=== PATIENT | female | born 1995 ===

== ENCOUNTER 2021-02-25 13:24 | Inpatient (IN) | payer MEDICAID, OTHER ==
[2021-02-25] MEDS ORDERED: CARBOPROST TROMETHAMINE 250 MCG/1 ML INJ IM PRN (15:41)
[2021-02-25] MEDS ORDERED: LOPERAMIDE 2 MG CAP PO PRN (15:41)
[2021-02-25] MEDS ORDERED: ACETAMINOPHEN 325 MG TAB PO PRN (15:41)
[2021-02-25] MEDS ORDERED: METHYLERGONOVINE MALEATE 0.2 MG/ML VIAL IM PRN (15:41)
[2021-02-25] MEDS ORDERED: fentaNYL 100 MCG/2 ML INJ IV PRN (15:41)
[2021-02-25] MEDS ORDERED: MINERAL OIL 30 ML ORAL LIQD PO PRN (15:41)
[2021-02-25] MEDS ORDERED: OXYTOCIN 10 UNIT/1 ML INJ IM PRN (15:41)
[2021-02-25] MEDS ORDERED: TERBUTALINE 1 MG/1 ML INJ SUB-Q PRN (15:41)
[2021-02-25] MEDS ORDERED: LIDOCAINE (2%) 20 MG/1 ML VIAL 20 ML MDV INFILTRATI ONE (15:41)
[2021-02-25] MEDS ORDERED: PROMETHAZINE 25 MG TAB PO PRN (15:41)
[2021-02-25] MEDS ORDERED: miSOPROStol 200 MCG TAB PR PRN (15:41)
[2021-02-25] MEDS ORDERED: ePHEDrine SULFATE 50 MG/1 ML INJ IV PRN (15:41)
[2021-02-25] MEDS ORDERED: OXYTOCIN DRIP 30 UNITS/500 ML BAG IV SCH (16:00)
[2021-02-25 16:22] LABS: Hematocrit 37.8 % (30.3-42.9); Hemoglobin 12.7 gm/dl (10.1-14.3); Mean Corpuscular HGB Conc 34 % (30-34); Mean Corpuscular Volume 85 fl (79-97); Red Blood Count 4.47 M/mm3 (3.65-5.03)
[2021-02-25 16:26] LABS: Red Cell Distribution Width 20.2 % (13.2-15.2)
[2021-02-25] MEDS: LACTATED RINGERS 1,000 ML IV SCH (16:29)
[2021-02-25] MEDS: OXYTOCIN DRIP 30 UNITS/500 ML BAG IV SCH (16:29)
[2021-02-25 16:37] LABS: Platelet Count 125 K/mm3 (140-440)
--- NOTE | 2021-02-25 19:03 | History and Physical Report ---
History of Present Illness Date of examination: 02/25/21 Date of admission: 02/25/21 13:25 Chief complaint: leakage of fluid and contractions History of present illness: G1Po at 40.6wks by LMP c/w U/Sound. care at [facility] covered by [employer]. pt came with c/o LOF at 4am today and pt came this evening. Pt denied fever or chills. pt feeling ctx however wants to do natural labor. pt has known uterine fibroids diagnosed this and she states she has been taking iron pills. Pt admits to movement, denies vag bleed or headache. labs with B+, RPR, HIV and HepBsAg all negative. Rubella immune. records also show multiple uterine fibroids. 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) Social history: no significant social history - Obstetrical History Expected Date of Delivery: 02/19/21 Actual Gestation: 40 Week(s) 6 Day(s) : 1 Number of Living Children: 0 Medications and Allergies Allergies Allergy/AdvReac Type Severity Reaction Status Date / Time No Known Allergies Allergy Verified 02/25/21 14:06 Home Medications Medication Instructions Recorded Confirmed Last Taken Type Pnv,Calcium 72/Iron/Folic Acid 1 each PO DAILY 02/25/21 02/25/21 02/24/21 14:00 History [ Plus Tablet] Active Meds: Active Medications Acetaminophen (Acetaminophen 325 Mg Tab) 650 mg PO Q4H PRN PRN Reason: Pain, Mild (1-3) Carboprost Tromethamine (Carboprost Tromethamine 250 Mcg/1 Ml Inj) 250 mcg IM ONCE PRN PRN Reason: Uterine Bleeding Ephedrine Sulfate (Ephedrine Sulfate 50 Mg/1 Ml Inj) 10 mg IV Q2M PRN PRN Reason: Hypotension Fentanyl (Fentanyl 100 Mcg/2 Ml Inj) 100 mcg IV Q2H PRN PRN Reason: Pain,Severe (7-10) LABOR PAIN Oxytocin/Sodium Chloride (Pitocin/Ns 30 Unit/500ml) 30 units in 500 mls @ 2 mls/hr IV TITR LARRY; Protocol Last Titration: 02/25/21 18:15 Dose: 8 ml/hr, 8 mls/hr Documented by: Lactated Ringer's (Lactated Ringers) 1,000 mls @ 125 mls/hr IV DIRECT LARRY Last Admin: 02/25/21 16:29 Dose: 125 mls/hr Documented by: Oxytocin/Sodium Chloride (Pitocin/Ns 30 Unit/500ml) 30 units in 500 mls @ 40 mls/hr IV TITR LARRY; Protocol Loperamide HCl (Loperamide 2 Mg Cap) 2 mg PO ONCE PRN PRN Reason: give with Hemabate Methylergonovine Maleate (Methylergonovine Maleate 0.2 Mg/Ml Vial) 0.2 mg IM ONCE PRN PRN Reason: Uterine Bleeding Mineral Oil (Mineral Oil 30 Ml Oral Liqd) 30 ml PO QHS PRN PRN Reason: Constipation Misoprostol (Misoprostol 200 Mcg Tab) 800 mcg SC ONCE PRN PRN Reason: Uterine Bleeding Nalbuphine HCl (Nalbuphine 10 Mg/1 Ml Inj) 10 mg IV Q2H PRN PRN Reason: Pain, Moderate (4-6) Oxytocin (Oxytocin 10 Unit/1 Ml Inj) 10 unit IM ONCE PRN PRN Reason: Uterine Bleeding Promethazine HCl (Promethazine 25 Mg Tab) 25 mg PO Q6H PRN PRN Reason: Nausea And Vomiting Terbutaline Sulfate (Terbutaline 1 Mg/1 Ml Inj) 0.25 mg SUB-Q ONCE PRN PRN Reason: Hyperstimulation/Hypertonicity Review of Systems All systems: negative (leakage of fluid and contractions) - Vital Signs Vital signs: Vital Signs Pulse Pulse Ox 61 99 02/25/21 13:47 02/25/21 13:47 Temp Pulse Resp BP Pulse Ox 98.4 F 59 L 20 121/74 99 02/25/21 18:31 02/25/21 18:52 02/25/21 18:31 02/25/21 15:35 02/25/21 18:52 - Physical Exam Breasts: Positive: deferred Lungs: Positive: Clear to auscultation Abdomen: Positive: normal appearance, soft Genitourinary (Female): Positive: normal external genitalia Vagina: Positive: normal moisture Uterus: Positive: enlarged (non-tender, gravid) Extremities: Positive: normal - Obstetrical FHR: category 1 Uterine Contraction Monitor Mode: External Cervical Dilatation: 1.5 (prev closed on admit, mec and blood tinged fluid) Cervical Effacement Percentage: 70 station: -2 Uterine Contraction Pattern: Irregular (IV pitocin now at 6mu/min) Results Result Diagrams: 02/25/21 15:05 Abnormal lab results 02/25/21 02/25/21 Range/Units 12:45 15:05 RDW 20.2 H (13.2-15.2) % Plt Count 125 L (140-440) K/mm3 Membranes Rupture Positive A (Negative) All other labs normal. Assessment and Plan Term IUP, post dates with PROM, meconium stained and now blood tinged fluid with multiple uterine fibroids 1. admit to labor and delivery and Augment labor with IV pitocin 2. Give amp for prolong rupture of membranes with single temp of 100.0 on admission, now afebrile 3. Discussed epidural for better pain relief 4. Discussed alternate route of delivery with section if non-reassuring FHR or arrest of labor all questions encouraged and answered
[2021-02-25] MEDS ORDERED: AMPICILLIN/NS 2 GM/100 ML 2 GM/100 ML BAG IV ONE (19:30)
[2021-02-25] MEDS: NalbUPHINE 10 MG/1 ML INJ IV PRN (22:49)
[2021-02-26] MEDS: AMPICILLIN/NS 1 GM/50 ML 1 GM/50 ML BAG IV SCH ×5 (00:08→16:48)
[2021-02-26] MEDS: LACTATED RINGERS 1,000 ML IV SCH ×4 (00:08→13:20)
[2021-02-26] MEDS: NalbUPHINE 10 MG/1 ML INJ IV PRN ×2 (01:21→04:13)
--- NOTE | 2021-02-26 09:48 | Progress Note ---
Assessment and Plan A: at 41 weeks gestation. SROM meconium stained amniotic fluid; labor is being augmented with Pitocin. GBS negative. P: Continue EFM, Pitocin augmentation of labor, Ampicillin. Consulted with Dr. Donahue re: patient's cervical exam and FHR tracing. Subjective - Subjective Date of service: 02/26/21 Principal diagnosis: at 41 weeks gestation; SROM, labor augmentation Interval history: Assumed care of patient at 08:00. Thin meconium stained amniotic fluid. Patient refused epidural. Has had IV pain medication. Currently on Pitocin 7 mu. Patient is receiving Ampicillin for prolonged ROM. Patient reports: movement normal, contractions Objective - Vital Signs Vital Signs: Vital Signs - 12hr 02/25/21 02/25/21 02/25/21 21:52 22:09 22:14 Temperature Pulse Rate 61 60 67 Respiratory Rate Blood Pressure Blood Pressure [Left] O2 Sat by Pulse 98 99 98 Oximetry 02/25/21 02/25/21 02/25/21 22:15 22:19 22:24 Temperature Pulse Rate 89 81 62 Respiratory Rate Blood Pressure Blood Pressure [Left] O2 Sat by Pulse 93 97 99 Oximetry 02/25/21 02/25/21 02/25/21 22:29 22:34 22:39 Temperature Pulse Rate 57 L 58 L 62 Respiratory Rate Blood Pressure Blood Pressure [Left] O2 Sat by Pulse 98 100 98 Oximetry 02/25/21 02/25/21 02/25/21 22:44 22:49 22:54 Temperature Pulse Rate 63 70 60 Respiratory Rate Blood Pressure Blood Pressure [Left] O2 Sat by Pulse 99 99 98 Oximetry 02/25/21 02/25/21 02/25/21 22:59 23:00 23:04 Temperature 98.3 F Pulse Rate 63 61 Respiratory Rate Blood Pressure Blood Pressure [Left] O2 Sat by Pulse 97 99 Oximetry 02/25/21 02/25/21 02/25/21 23:09 23:14 23:19 Temperature Pulse Rate 58 L 60 64 Respiratory Rate Blood Pressure Blood Pressure [Left] O2 Sat by Pulse 99 98 98 Oximetry 02/25/21 02/25/21 02/25/21 23:24 23:29 23:34 Temperature Pulse Rate 79 66 63 Respiratory Rate Blood Pressure Blood Pressure [Left] O2 Sat by Pulse 99 97 98 Oximetry 02/25/21 02/25/21 02/25/21 23:39 23:44 23:49 Temperature Pulse Rate 65 67 73 Respiratory 18 Rate Blood Pressure Blood Pressure [Left] O2 Sat by Pulse 98 98 98 Oximetry 02/25/21 02/25/21 02/26/21 23:54 23:59 00:04 Temperature Pulse Rate 70 68 69 Respiratory Rate Blood Pressure Blood Pressure [Left] O2 Sat by Pulse 97 97 97 Oximetry 02/26/21 02/26/21 02/26/21 00:09 00:14 00:19 Temperature Pulse Rate 66 67 62 Respiratory Rate Blood Pressure Blood Pressure [Left] O2 Sat by Pulse 97 98 98 Oximetry 02/26/21 02/26/21 02/26/21 00:24 00:29 00:34 Temperature Pulse Rate 63 75 76 Respiratory Rate Blood Pressure Blood Pressure [Left] O2 Sat by Pulse 97 97 97 Oximetry 02/26/21 02/26/21 02/26/21 00:39 00:44 00:45 Temperature Pulse Rate 67 96 H 77 Respiratory Rate Blood Pressure Blood Pressure [Left] O2 Sat by Pulse 98 98 94 Oximetry 02/26/21 02/26/21 02/26/21 00:53 00:58 01:03 Temperature 98.2 F Pulse Rate 70 68 66 Respiratory Rate Blood Pressure Blood Pressure [Left] O2 Sat by Pulse 98 98 100 Oximetry 02/26/21 02/26/21 02/26/21 01:08 01:13 01:18 Temperature Pulse Rate 70 76 85 Respiratory Rate Blood Pressure Blood Pressure [Left] O2 Sat by Pulse 99 97 97 Oximetry 02/26/21 02/26/21 02/26/21 01:23 01:28 01:33 Temperature Pulse Rate 83 75 101 H Respiratory Rate Blood Pressure Blood Pressure [Left] O2 Sat by Pulse 96 96 96 Oximetry 02/26/21 02/26/21 02/26/21 01:38 01:43 01:45 Temperature Pulse Rate 75 89 72 Respiratory Rate Blood Pressure Blood Pressure [Left] O2 Sat by Pulse 97 97 94 Oximetry 02/26/21 02/26/21 02/26/21 01:48 01:53 01:58 Temperature Pulse Rate 90 69 75 Respiratory Rate Blood Pressure Blood Pressure [Left] O2 Sat by Pulse 97 96 96 Oximetry 02/26/21 02/26/21 02/26/21 02:03 02:08 02:13 Temperature Pulse Rate 75 73 73 Respiratory Rate Blood Pressure Blood Pressure [Left] O2 Sat by Pulse 97 96 96 Oximetry 02/26/21 02/26/21 02/26/21 02:18 02:23 02:24 Temperature Pulse Rate 86 83 78 Respiratory Rate Blood Pressure Blood Pressure [Left] O2 Sat by Pulse 96 95 94 Oximetry 02/26/21 02/26/21 02/26/21 02:28 02:33 02:38 Temperature Pulse Rate 74 75 93 H Respiratory Rate Blood Pressure Blood Pressure [Left] O2 Sat by Pulse 96 97 96 Oximetry 02/26/21 02/26/21 02/26/21 02:43 02:48 02:53 Temperature Pulse Rate 70 75 67 Respiratory Rate Blood Pressure Blood Pressure [Left] O2 Sat by Pulse 96 95 96 Oximetry 02/26/21 02/26/21 02/26/21 02:54 02:58 03:03 Temperature Pulse Rate 72 72 69 Respiratory Rate Blood Pressure Blood Pressure [Left] O2 Sat by Pulse 93 96 97 Oximetry 02/26/21 02/26/21 02/26/21 03:08 03:13 03:18 Temperature Pulse Rate 75 74 67 Respiratory Rate Blood Pressure Blood Pressure [Left] O2 Sat by Pulse 96 94 96 Oximetry 02/26/21 02/26/21 02/26/21 03:23 03:28 03:33 Temperature Pulse Rate 78 82 75 Respiratory Rate Blood Pressure Blood Pressure [Left] O2 Sat by Pulse 95 96 95 Oximetry 02/26/21 02/26/21 02/26/21 03:38 03:40 03:43 Temperature Pulse Rate 72 76 66 Respiratory Rate Blood Pressure Blood Pressure [Left] O2 Sat by Pulse 96 94 97 Oximetry 02/26/21 02/26/21 02/26/21 03:48 03:53 03:58 Temperature Pulse Rate 73 65 82 Respiratory Rate Blood Pressure Blood Pressure [Left] O2 Sat by Pulse 96 97 97 Oximetry 02/26/21 02/26/21 02/26/21 04:07 04:12 04:15 Temperature 98.1 F Pulse Rate 114 H 68 Respiratory 19 Rate Blood Pressure Blood Pressure [Left] O2 Sat by Pulse 0 L 97 Oximetry 02/26/21 02/26/21 02/26/21 04:16 04:17 04:22 Temperature Pulse Rate 77 71 65 Respiratory Rate Blood Pressure 129/81 Blood Pressure [Left] O2 Sat by Pulse 93 97 96 Oximetry 02/26/21 02/26/21 02/26/21 04:24 04:27 04:32 Temperature Pulse Rate 74 78 69 Respiratory Rate Blood Pressure Blood Pressure [Left] O2 Sat by Pulse 94 96 96 Oximetry 02/26/21 02/26/21 02/26/21 04:37 04:42 04:47 Temperature Pulse Rate 88 84 85 Respiratory Rate Blood Pressure Blood Pressure [Left] O2 Sat by Pulse 97 94 94 Oximetry 02/26/21 02/26/21 02/26/21 04:52 04:57 04:58 Temperature Pulse Rate 72 70 89 Respiratory Rate Blood Pressure Blood Pressure [Left] O2 Sat by Pulse 97 97 94 Oximetry 02/26/21 02/26/21 02/26/21 05:02 05:07 05:12 Temperature Pulse Rate 74 93 H 112 H Respiratory Rate Blood Pressure Blood Pressure [Left] O2 Sat by Pulse 94 97 95 Oximetry 02/26/21 02/26/21 02/26/21 05:15 05:16 05:17 Temperature Pulse Rate 80 71 76 Respiratory Rate Blood Pressure 135/80 Blood Pressure [Left] O2 Sat by Pulse 94 96 Oximetry 02/26/21 02/26/21 02/26/21 05:20 05:22 05:37 Temperature Pulse Rate 78 94 H 53 L Respiratory Rate Blood Pressure Blood Pressure [Left] O2 Sat by Pulse 94 96 98 Oximetry 02/26/21 02/26/21 02/26/21 05:42 05:47 05:52 Temperature Pulse Rate 80 63 72 Respiratory Rate Blood Pressure Blood Pressure [Left] O2 Sat by Pulse 97 96 95 Oximetry 02/26/21 02/26/21 02/26/21 05:57 05:58 06:02 Temperature Pulse Rate 70 80 63 Respiratory Rate Blood Pressure Blood Pressure [Left] O2 Sat by Pulse 93 96 94 Oximetry 02/26/21 02/26/21 02/26/21 06:03 06:08 06:10 Temperature Pulse Rate 67 72 64 Respiratory Rate Blood Pressure Blood Pressure [Left] O2 Sat by Pulse 96 95 93 Oximetry 02/26/21 02/26/21 02/26/21 06:13 06:17 06:18 Temperature Pulse Rate 66 69 69 Respiratory Rate Blood Pressure 131/67 Blood Pressure [Left] O2 Sat by Pulse 97 97 Oximetry 02/26/21 02/26/21 02/26/21 06:23 06:28 06:33 Temperature Pulse Rate 65 70 66 Respiratory Rate Blood Pressure Blood Pressure [Left] O2 Sat by Pulse 96 97 99 Oximetry 02/26/21 02/26/21 02/26/21 06:36 06:38 06:43 Temperature 98.3 F Pulse Rate 62 69 Respiratory 18 Rate Blood Pressure Blood Pressure [Left] O2 Sat by Pulse 97 98 Oximetry 02/26/21 02/26/21 02/26/21 06:48 06:53 06:56 Temperature Pulse Rate 65 64 71 Respiratory Rate Blood Pressure Blood Pressure [Left] O2 Sat by Pulse 97 98 94 Oximetry 02/26/21 02/26/21 02/26/21 06:58 07:03 07:06 Temperature Pulse Rate 69 65 68 Respiratory Rate Blood Pressure Blood Pressure [Left] O2 Sat by Pulse 95 97 93 Oximetry 02/26/21 02/26/21 02/26/21 07:08 07:13 07:15 Temperature 99.1 F Pulse Rate 72 66 62 Respiratory 17 Rate Blood Pressure Blood Pressure 132/72 [Left] O2 Sat by Pulse 97 96 97 Oximetry 02/26/21 02/26/21 02/26/21 07:17 07:18 07:25 Temperature Pulse Rate 80 80 71 Respiratory Rate Blood Pressure 135/63 Blood Pressure [Left] O2 Sat by Pulse 97 96 Oximetry 02/26/21 02/26/21 02/26/21 07:30 07:33 07:35 Temperature Pulse Rate 70 78 63 Respiratory Rate Blood Pressure Blood Pressure [Left] O2 Sat by Pulse 99 94 96 Oximetry 02/26/21 02/26/21 02/26/21 07:40 07:43 07:45 Temperature Pulse Rate 72 71 70 Respiratory Rate Blood Pressure Blood Pressure [Left] O2 Sat by Pulse 97 93 97 Oximetry 02/26/21 02/26/21 02/26/21 07:49 07:50 07:55 Temperature Pulse Rate 71 64 70 Respiratory Rate Blood Pressure Blood Pressure [Left] O2 Sat by Pulse 84 97 97 Oximetry 02/26/21 02/26/21 02/26/21 07:57 08:00 08:05 Temperature Pulse Rate 66 70 69 Respiratory Rate Blood Pressure Blood Pressure [Left] O2 Sat by Pulse 94 100 96 Oximetry 02/26/21 02/26/2102/26/21 08:09 08:10 08:14 Temperature Pulse Rate 64 63 66 Respiratory Rate Blood Pressure 132/72 Blood Pressure [Left] O2 Sat by Pulse 96 93 Oximetry 02/26/21 02/26/21 02/26/21 08:15 08:16 08:20 Temperature Pulse Rate 65 68 64 Respiratory Rate Blood Pressure 120/77 Blood Pressure [Left] O2 Sat by Pulse 97 97 Oximetry 02/26/21 02/26/21 02/26/21 08:25 08:30 08:32 Temperature Pulse Rate 73 65 58 L Respiratory Rate Blood Pressure Blood Pressure [Left] O2 Sat by Pulse 96 99 94 Oximetry 02/26/21 02/26/21 02/26/21 08:35 08:40 08:45 Temperature Pulse Rate 65 65 65 Respiratory Rate Blood Pressure Blood Pressure [Left] O2 Sat by Pulse 96 97 96 Oximetry 02/26/21 02/26/21 02/26/21 08:50 08:55 09:00 Temperature Pulse Rate 63 57 L 66 Respiratory Rate Blood Pressure Blood Pressure [Left] O2 Sat by Pulse 97 96 96 Oximetry 02/26/21 02/26/21 02/26/21 09:01 09:05 09:10 Temperature Pulse Rate 61 63 59 L Respiratory Rate Blood Pressure Blood Pressure [Left] O2 Sat by Pulse 94 97 96 Oximetry 02/26/21 02/26/21 02/26/21 09:15 09:20 09:32 Temperature Pulse Rate 73 78 72 Respiratory Rate Blood Pressure Blood Pressure [Left] O2 Sat by Pulse 99 97 98 Oximetry 02/26/21 02/26/21 02/26/21 09:37 09:42 09:47 Temperature Pulse Rate 71 71 74 Respiratory Rate Blood Pressure Blood Pressure [Left] O2 Sat by Pulse 97 96 96 Oximetry - Exam Abdomen: Present: normal appearance, soft. Absent: distention, tenderness, guarding, rigidity FHR: category 2 FHR comments: Normal baseline FHR, minimal to moderate variability, early FHR decelerations and occasional variable FHR deceleration. Cervical Dilatation: 5 Cervical Effacement Percentage: 90 station: -3 Uterine Contraction Pattern: Regular Uterine Contraction Intensity: Strong/Firm - Labs Labs: Abnormal Labs 02/25/21 02/25/21 12:45 15:05 RDW 20.2 H Plt Count 125 L Membranes Rupture Positive A Laboratory Results - last 24 hr 02/25/21 02/25/21 02/25/21 12:45 15:05 15:05 WBC 8.7 RBC 4.47 Hgb 12.7 Hct 37.8 MCV 85 MCH 29 MCHC 34 RDW 20.2 H Plt Count 125 L Membranes Rupture Positive A Blood Type B POSITIVE Antibody Screen Negative
--- NOTE | 2021-02-26 11:33 | Event Note ---
Date: 02/26/21 Patient is getting IV fluid bolus in preparation for epidural; patient has decided to take epidural. IUPC placed to better evaluate contractions. Cervical exam unchanged.
[2021-02-26] MEDS: OXYTOCIN DRIP 30 UNITS/500 ML BAG IV SCH (11:38)
[2021-02-26] MEDS ORDERED: LACTATED RINGERS 250 ML IV SOLN IV ONE (11:52)
[2021-02-26] MEDS ORDERED: NALOXONE 2 MG/2 ML INJ IV PRN (11:52)
[2021-02-26] MEDS ORDERED: NalbUPHINE 10 MG/1 ML INJ IV PRN (11:52)
[2021-02-26] MEDS ORDERED: ONDANSETRON 4 MG/2 ML INJ IV PRN (11:52)
[2021-02-26] MEDS ORDERED: ePHEDrine SULFATE 50 MG/1 ML INJ IV PRN (11:52)
[2021-02-26] MEDS ORDERED: diphenhydrAMINE 50 MG/ML VIAL IV PRN (11:52)
[2021-02-26] MEDS ORDERED: fentaNYL-BUPIV 2 MCG/ML-0.125% 200 MCG/100 ML BAG EPIDURAL SCH (12:00)
--- NOTE | 2021-02-26 12:35 | Anesthesia Consultation ---
Anesthesia Consult and Med Hx Date of service: 02/26/21 - Airway Anesthetic Teeth Evaluation: Good ROM Head & Neck: Adequate Mental/Hyoid Distance: Adequate Mallampati Class: Class II Intubation Access Assessment: Probably Good - Pulmonary Exam CTA: Yes - Cardiac Exam Cardiac Exam: RRR - Pre-Operative Health Status ASA Pre-Surgery Classification: ASA2 Proposed Anesthetic Plan: Epidural - Pulmonary Hx Smoking: No Hx Asthma: No COPD: No Hx Pneumonia: No Hx Sleep Apnea: No - Cardiovascular System Hx Hypertension: No Hx Heart Attack/AMI: No Hx Angina: No - Central Nervous System Hx Seizures: No Hx Psychiatric Problems: No - Gastrointestinal Hx Gastroesophageal Reflux Disease: No - Endocrine Hx Renal Disease: No Hx End Stage Renal Disease: No Hx Liver Disease: No Hx Insulin Dependent Diabetes: No Hx Non-Insulin Dependent Diabetes: No Hx Hypothyroidism: No Hx Hyperthyroidism: No - Hematic Hx Anemia: Yes (Iron) Hx Sickle Cell Disease: No - Other Systems Hx Alcohol Use: No
--- NOTE | 2021-02-26 12:36 | Progress Note ---
Labor Epidural - Labor Epidural Start Time: 12:20 Stop Time: 12:35 Performed by:: NESTOR FLAHERTY ([facility]) Procedure: Patient is requesting epidural for labor and pain. H&P, labs were reviewed. Patient IDed, H&P reviewed, all questions and concerns were answered, and consent was signed. Timeout was performed at bedside. Patient in sitting position. Sterile prep and drape was performed. 3ml of 1% lidocaine skin wheal at L[3]- L [4]. 18-gauge CrossFiber epidural needle was advanced to loss of resistance with air technique 7cm. Negative CSF negative blood. Epidural catheter advanced to [12] centimeters. [negative] Aspiration [negative] test dose. Sterile dressing applied. Patient tolerated procedure.
--- NOTE | 2021-02-26 13:35 | Event Note ---
Date: 02/26/21 Patient with prolonged ROM and cervix unchanged, still /-3. Pitocin had to be turned off due to late FHR declerations and variable FHR decelerations. Now with category 1 FHR tracing since stopping Pitocin. Dr. Donahue consulted and C/S orders put in. Team notified.
[2021-02-26] MEDS ORDERED: FAMOTIDINE 20 MG/2 ML INJ IV ONE ×2 (14:00→18:58)
[2021-02-26] MEDS ORDERED: ceFAZolin/Water 2 GM/20 ML 2 GM/20 ML SYRINGE IV NR (14:00)
[2021-02-26] MEDS ORDERED: OXYTOCIN DRIP 30 UNITS/500 ML BAG IV SCH ×2 (14:00→23:00)
[2021-02-26] MEDS ORDERED: LACTATED RINGERS 1,000 ML IV SCH (14:00)
[2021-02-26] MEDS ORDERED: BICITRA ORAL LIQD 30ML PO ONE (14:00)
[2021-02-26] MEDS ORDERED: METOCLOPRAMIDE 10 MG/2 ML INJ IV ONE (14:00)
--- NOTE | 2021-02-26 14:18 | Event Note ---
Date: 02/26/21 pt evaluated again after Moni called me wtih non-reasurring FHR that becomes category I when pitocin is turned off. I discussed at length the alternate mode of delivery with section and pt declines and would like time to think about this. Pt offered pelvic u/sound as we wait and same accepted. EFW estimated to be 5lbs and large fundal mass to right noted with blood supply, 2 additional fibroids 3 and 5cm seen and anterior placental noted. head right above the bladder and LOP presentation. Pelvic 7/100/-2; Will resume candice chun and place to do same intermittently per pt choice. Discussed at length the complications of both prolong labor and higher risk of infection, dysfunctional labor due to distorted uterine cavity and meconium stained fluid since admission. Both pt and her FOB would like to defer section at this time aware of the risks! All questions encouraged and answered and pt autonomy shall prevail.
[2021-02-26] MEDS ORDERED: LIDOCAINE 2%/EPINEPHRINE 1:200,000 VIAL (20 ML) INFILTRATI ONE (14:28)
[2021-02-26] MEDS ORDERED: BUPIVACAINE/PF (0.25%) 2.5 MG/ML 30 ML VIAL INFILTRATI ONE (14:30)
[2021-02-26] MEDS ORDERED: dexAMETHasone 20 MG/5 ML VIAL ONE (14:30)
[2021-02-26] MEDS ORDERED: ONDANSETRON 4 MG/2 ML INJ ONE (14:30)
[2021-02-26] MEDS ORDERED: KETOROLAC 30 MG/1 ML INJ ONE (14:30)
--- NOTE | 2021-02-26 15:06 | Ultrasound Report ---
LIMITED TRANSABDOMINAL OB PELVIC ULTRASOUND INDICATION / CLINICAL INFORMATION: EFW and fibroid location, number. COMPARISON: None available. FINDINGS: There is a single intrauterine with an estimated sonographic gestational age of 32 weeks 5 days and an EDC of 04/18/21. Clinical dates are 41 weeks. presentation is cephalic. The h eart rate is 130 bpm. The estimated weight is 2300+/-340 g. There are a couple of fibroids present. There is a 5.4 cm fibroid in the fundus and a 3.7 cm fibroid in the posterior uterine body. Signer Name: Fernando Zhang MD Signed: 02/26/2021 3:01 PM Workstation Name: [id number]
--- NOTE | 2021-02-26 15:26 | Event Note ---
Date: 02/26/21 nurse called me to bedside when pitocin restarted. FHR heart rate down to the 90's and FOB with heart monitor hovering over pt and turning pt from side to side. I did a pelvic exam and pelvic 7-2; I suggested time to go to the OR but pt was following FOB's instruction. I therefore asked the nurse to give brethine 0.25mg SQ now and FHR now 150's. FSE placed and pt told the risks, benefits and alternatives and pitocin off at this time. Will place fine cath in prep for emergent section in spite of verbal shortage of catheters at [facility]. Pt aware of risks, benefits and alternatives if section not done. All questions encouraged and answered.
[2021-02-26] MEDS ORDERED: SODIUM CHLORIDE 0.9% 500 ML 500 ML IV SCH (18:48)
--- NOTE | 2021-02-26 18:53 | Event Note ---
Date: 02/26/21 Prolonged FHR deceleration with return to baseline. SVE /-2, unchanged from my previous exam. Patient states she wants to have section now. Informed Dr. Donahue. Team notified.
[2021-02-26] MEDS ORDERED: BICITRA ORAL LIQD 30ML ONE (18:58)
[2021-02-26] MEDS ORDERED: METOCLOPRAMIDE 10 MG/2 ML INJ ONE (18:58)
[2021-02-26] MEDS ORDERED: WATER FOR IRRIG STERILE 1,500 ML BOTTLE IR ONE (19:29)
[2021-02-26] MEDS ORDERED: SODIUM CHLORIDE 0.9% IRR 1,500 ML BOTTLE IR ONE (19:29)
[2021-02-26] MEDS ORDERED: ceFAZolin/STERILE WATER 2 GM/20 ML SYRINGE IV ONE (19:29)
[2021-02-26] MEDS ORDERED: LACTATED RINGERS 1,000 ML ONE (19:38)
[2021-02-26] MEDS ORDERED: fentaNYL 100 MCG/2 ML INJ ONE (20:02)
--- NOTE | 2021-02-26 21:32 | Event Note ---
Date: 02/26/21 Moni called me with non-reassuring tracing again and stated pt has now agreed to section. I went to the patient and confirmed that she was ready for section. FHR now 160-170's and anesthesiologist notified and NICU for urgent section. All questions once again encouraged and consents signed. Pt taken to the OR via stretcher.
--- NOTE | 2021-02-26 21:47 | Procedure Note ---
OB Delivery Note - Delivery Date of Delivery: 02/26/21 Surgeon: SHAMA MCFADDEN - Section Preop diagnosis: nonreassuring FHR tracing, other (labor dystocia and Uterine) Postop diagnosis: same (humogous uterine Fibroid-like mass that extends the entire left side of the uterine cavity and nuchal cord x2) section procedure: primary low transverse Disposition: floor Complications: none Narrative: Date: 02/26/21 Surgeon: Shama Mcfadden MD assisted by scrub techs x2, until closure of the uterus, then Marysol left and Patricia remained. Preop Dx: IUP at 41wks, Multiple uterine fibroids, Non-reassuring FHR, Labor dystocia, Meconium stained fluid, prolong rupture of membranes, Thrombocytopenia Postop Dx: same and humongous uterine mass 22cm in length and extends posterior the entire width of the uterus; possible early signs of endometritis Procedure : Primary low transverse section Anesthesia: Epidural Intake: 2000cc crystalloids Output: 200cc clear urine at the end of the procedure EBL: 761cc per nurse by QBL After the risks, benefits and alternatives of procedure discussed, patient signed consents and was taken to the operating room. Pt was given epidural anesthesia. After same was adequate, patient was prepped and draped in the usual sterile fashion. Jalloh catheter was already in place and draining clear urine. Pt was given prophylactic antibiotic per protocol and time out was done Pfannenstiel skin incision was made and taken sharply to the fascia and the incision extended using electrocautery. Superior edge of the fascia was grasped with christine clamps and the rectus muscle using blunt dissection and also using electrocautery. Lower portion of the fascia also in a similar manner. Rectus muscle in the midline and Peritoneal cavity entered sharply and extended with good visualization of the bladder. Sparkle retractor was used. The bladder flap was created sharply using metzenbaum scissors and bladder blade placed in addition to the sparkle present. Lower uterine segment then entered transversely and amniotic sac entered using allys clamps. Uterine incision extended using bandage scissors. delivered, bulb suctioned, cord clamped and baby handed to waiting pediatricians. Cord segment removed and handed to circulating nurse to send umbilical artery gas. Placenta then manually delivered completely and uterine cavity cleared of all clots and debri. The cavity was very uneven with solid mass to left and anteriorly uterine fibroids as well. The uterus could not be exteriorized and it was closed in 1 layers using 0-monocryl suture in a running locked fashion and then one additional figure of Eight suture to achieve exc ellent hemostasis. Pelvic washings were done after I realized the size of the mass after delivery of the baby. The bladder flap was then closed using 3-0 vicryl suture continuously. The gutters were cleared of clots and debri and anterior peritoneum closed using 3-0 vicryl suture in a continuous fashion; then the rectus muscle reapproximated using 0-vicryl] suture. Rectus fascia closed with [0-vicryl] suture in a continous fashion and the subcutaneous tissue copiously irrigated with normal saline and re-approximated using 3-0 vicryl suture. Excellent hemostasis remains. The skin was closed with 4-0 monocryl suture and steristrips placed with pressure dressing. Sponge, lap, instrument and needle counts x3 were normal. Patient tolerated the procedure well and was taken to recovery room stable. Pt was given cytotec 800mcg per rectum in anticipation of uterine atony and thrombocytopenia already present. Findings: Viable female infant, APGARS 8/9 and weight 3761g. Nuchal cord x2 reduced at delivery. Meconium stained fluid remained light mec. Umbilical artery gas pH 7.169 and BE -8; [place] Irregularly shaped uterine cavity that was noted only after the delivery of baby, with anterior intramural 5cm fibroid and solid mass that when measured as best as I could was 22cm and extended posteriorly the entire width of the uterine posterior wall thru all uterine muscle. Unable to visualize the fundal or posterior surface of uterine serosa. The placenta had to removed manually and same sent to pathology. When amniotic sac completely removed tissue appeared friable and easily removed in fragment, early signs of infection. Both tubes appear wnl and left ovary larger 4cm than right ovary 2-3cm and both ovaries appear normal. Incidental note: my remaining health assistant Patricia had to leave the room due to episode of lightheadedness and the fascia was closed by me unassisted. This same health assistant returned for the remaining course of the surgery. The patient remained stable with normal vital signs and excellent hemostasis Pathology: placenta and pelvic washings All findings discovered told to the patient and will refer post discharge to specialist for humongous uterine mass during the period. Pt told not to get prior to seeing specialist. Pt verbalized understanding.
[2021-02-26] MEDS ORDERED: LANOLIN/ZINC/DIMETHICONE (LANSINOH) 7 GM TP PRN (22:44)
[2021-02-26] MEDS ORDERED: WITCH HAZEL/ GLYCERIN PAD TP PRN (22:44)
[2021-02-26] MEDS ORDERED: MORPHINE 2 MG/1 ML INJ IV PRN (22:44)
[2021-02-26] MEDS ORDERED: NALOXONE 0.4 MG/1 ML INJ IV PRN (22:44)
[2021-02-26] MEDS ORDERED: HYDROCORTISONE 25 MG RECTAL SUPP PR PRN (22:44)
[2021-02-26] MEDS ORDERED: MAGNESIUM HYDROXIDE (MOM) ORAL LIQD UDC PO PRN (22:44)
[2021-02-26] MEDS ORDERED: oxyCODONE /ACETAMINOPHEN 5-325MG TAB PO PRN (22:44)
[2021-02-26] MEDS ORDERED: SIMETHICONE 80 MG CHEW TAB PO PRN (22:44)
[2021-02-26] MEDS ORDERED: IBUPROFEN 600 MG TAB PO PRN (22:44)
[2021-02-26] MEDS ORDERED: ACETAMINOPHEN 500 MG TAB PO PRN (23:57)
--- NOTE | 2021-02-27 00:04 | Event Note ---
Date: 02/27/21 I evaluated pt in recovery room and blood loss more than expected inspite of no clots. Nurse told pt to remain on labor and delivery for a longer period for close evaluation. Nurse later told me pt has temp of 103. Blood cultures ordered x2sets and ancef ordered post op cancelled and pt to receive broad spectrum antibiotics Amp/gent/clinda. Covid test negative seen. Urine output remains good. Plan of care discussed with patient. All questions encouraged and answered. After a long discussion with pt asking for repeat temp and if same normal, then are the antibiotics needed, then after another explanation on the need not to have early signs of sepsis, pt accepted treatment.
[2021-02-27] MEDS: GENTAMICIN 360 MG in SODIUM CHLORIDE 0.9% 100 ML IV SCH (01:09)
[2021-02-27] MEDS: LACTATED RINGERS 1,000 ML IV SCH ×2 (02:03→20:53)
[2021-02-27] MEDS: AMPICILLIN/NS 2 GM/100 ML 2 GM/100 ML BAG IV SCH ×3 (02:03→20:52)
--- NOTE | 2021-02-27 09:32 | Post Anesthesia Evaluation ---
- Post Anesthesia Evaluation Patient Participated: Yes Airway Patent: Yes Stable Respiratory Function: Yes Nausea/Vomiting: No Temp > 96.8F: Yes Pain Manageable: Yes Adequeate Hydration: Yes Anesthesia Complications: No Block Receding Appropriately: Yes Patient on Ventilator: No
--- NOTE | 2021-02-27 09:54 | Progress Note ---
Assessment and Plan A: S/P primary LTCS Endometritis Lg fibroid PP hemorrhage p: Continue routine pp care Continue ABT Encourage ambulation Awaiting results of blood cul and H&H D/C home with 24-48 hours if stable Subjective - Subjective Date of service: 02/27/21 Principal diagnosis: s/p primary LTCS Patient reports: appetite normal, voiding normally, pain well controlled, ambulating normally : doing well, bottle feeding Objective - Vital Signs Latest vital signs: Vital Signs Temp Pulse Resp BP BP Pulse Ox Pulse Ox 02/27/21 08:02 98.1 F 02/27/21 08:01 62 119/71 02/27/21 07:58 64 98 02/27/21 07:53 74 98 02/27/21 07:49 61 119/69 02/27/21 07:48 61 96 02/27/21 07:43 64 96 02/27/21 07:38 60 95 02/27/21 07:34 62 140/75 02/27/21 07:33 63 96 02/27/21 07:28 60 96 02/27/21 07:23 61 97 02/27/21 07:19 60 143/68 02/27/21 07:18 60 97 02/27/21 07:13 55 L 99 02/27/21 07:10 58 L 140/60 02/27/21 07:08 66 98 02/27/21 07:05 57 L 152/67 02/27/21 07:03 59 L 99 02/27/21 06:58 59 L 97 02/27/21 06:53 74 97 02/27/21 06:49 60 131/67 02/27/21 06:48 55 L 98 02/27/21 06:43 63 96 02/27/21 06:38 65 99 02/27/21 06:37 94 H 92 02/27/21 06:34 71 130/56 02/27/21 06:33 69 96 02/27/21 06:28 63 94 02/27/21 06:23 61 95 02/27/21 06:20 59 L 143/66 02/27/21 06:18 57 L 95 02/27/21 06:13 58 L 96 02/27/21 06:08 61 97 02/27/21 06:05 58 L 125/59 09/20/21 06:03 61 98 09/20/21 05:58 63 95 09/20/21 05:53 66 95 09/20/21 05:49 63 116/66 09/20/21 05:48 66 95 09/20/21 05:43 65 95 09/20/21 05:38 67 94 09/20/21 05:34 65 112/68 09/20/21 05:33 69 94 09/20/21 05:28 70 94 09/20/21 05:23 64 95 09/20/21 05:19 66 108/67 09/20/21 05:18 70 94 09/20/21 05:13 66 95 09/20/21 05:08 64 94 09/20/21 05:04 67 121/74 09/20/21 05:03 73 94 09/20/21 04:58 72 94 09/20/21 04:53 73 94 09/20/21 04:49 72 111/64 09/20/21 04:48 74 94 09/20/21 04:43 74 94 09/20/21 04:38 74 94 09/20/21 04:34 72 108/62 09/20/21 04:33 72 94 09/20/21 04:28 75 95 09/20/21 04:23 73 94 09/20/21 04:19 70 114/64 09/20/21 04:18 71 95 09/20/21 04:13 74 94 09/20/21 04:08 73 97 09/20/21 04:04 76 120/59 09/20/21 04:03 77 97 09/20/21 03:58 72 97 09/20/21 03:53 80 94 09/20/21 03:49 77 118/63 09/20/21 03:48 77 94 09/20/21 03:43 81 94 09/20/21 03:38 77 95 09/20/21 03:34 74 110/55 09/20/21 03:33 74 95 09/20/21 03:28 102 H 95 09/20/21 03:22 90 97 09/20/21 03:20 88 139/74 09/20/21 03:17 92 H 97 09/20/21 03:12 93 H 97 09/20/21 03:07 95 H 96 09/20/21 03:04 80 109/58 09/20/21 03:02 89 97 09/20/21 02:57 86 97 09/20/21 02:52 80 94 09/20/21 02:49 82 122/62 09/20/21 02:47 82 95 09/20/21 02:42 79 95 09/20/21 02:37 83 116/57 95 09/20/21 02:32 82 95 09/20/21 02:27 80 95 09/20/21 02:22 83 95 09/20/21 02:19 83 117/59 09/20/21 02:17 80 95 09/20/21 02:12 81 95 09/20/21 02:07 87 96 09/20/21 02:04 86 129/62 09/20/21 02:02 92 H 94 09/20/21 02:01 92 H 93 09/20/21 01:57 94 H 96 09/20/21 01:52 85 94 09/20/21 01:49 83 119/62 09/20/21 01:47 87 94 09/20/21 01:42 84 94 09/20/21 01:41 84 93 09/20/21 01:37 83 94 09/20/21 01:34 80 129/64 09/20/21 01:32 79 94 09/20/21 01:27 84 95 09/20/21 01:22 85 96 09/20/21 01:19 80 126/60 09/20/21 01:17 81 95 09/20/21 01:12 78 95 09/20/21 01:07 84 96 09/20/21 01:04 83 122/57 09/20/21 01:02 83 96 09/20/21 00:57 92 H 96 09/20/21 00:52 87 95 09/20/21 00:47 80 94 09/20/21 00:42 78 94 09/20/21 00:37 77 94 09/20/21 00:36 78 94 09/20/21 00:32 79 94 09/20/21 00:31 79 94 09/20/21 00:27 74 95 09/20/21 00:26 76 94 09/20/21 00:22 83 95 09/20/21 00:17 80 94 09/20/21 00:15 79 94 09/20/21 00:12 75 96 09/20/21 00:07 83 95 2021 00:02 84 95 02/27/21 00:01 90 94 21 23:57 82 97 02/26/21 23:54 88 94 02/26/21 23:52 97 H 95 02/26/21 23:48 80 93 02/26/21 23:47 81 91 02/26/21 23:43 83 135/65 93 02/26/21 23:42 83 96 02/26/21 23:40 103 F H 02/26/21 23:37 88 97 02/26/21 22:35 98.4 F 98 H 17 157/82 96 02/26/21 22:15 89 12 143/77 97 02/26/21 22:00 87 16 134/66 98 02/26/21 21:45 92 H 13 168/78 98 02/26/21 21:27 73 18 132/64 96 02/26/21 21:22 75 23 110/50 100 02/26/21 21:17 97.8 F 75 22 109/51 100 02/26/21 19:00 77 100 02/26/21 18:55 91 H 100 02/26/21 18:54 82 120/67 02/26/21 18:50 91 H 99 98 02/26/21 18:45 101 H 100 02/26/21 18:40 81 121/61 100 21 18:35 73 100 02/26/21 18:30 72 100 21 18:25 78 98 02/26/21 18:24 81 86 21 18:20 69 100 21 18:17 89 81 L 02/26/21 18:15 71 100 21 18:10 67 100 21 18:09 65 112/65 02/26/21 18:06 89 86 21 18:05 87 100 21 18:00 75 100 02/26/21 17:55 66 100 02/26/21 17:54 63 107/61 21 17:50 71 100 19/21 17:45 71 100 1921 17:40 68 100 19/21 17:39 69 104/58 02/26/21 17:35 74 100 02/26/21 17:30 68 100 02/26/21 17:27 85 94 02/26/21 17:25 82 100 02/26/21 17:24 71 101/60 02/26/21 17:20 68 100 02/26/21 17:15 84 100 02/26/21 17:10 89 99 02/26/21 17:09 102 H 104/57 02/26/21 17:05 84 100 02/26/21 17:00 98 H 100 02/26/21 16:55 100 H 100 02/26/21 16:54 93 H 116/69 02/26/21 16:50 89 100 02/26/21 16:45 87 100 02/26/21 16:40 94 H 100 02/26/21 16:39 102 H 107/58 02/26/21 16:35 91 H 100 02/26/21 16:30 99 H 100 02/26/21 16:25 99 H 119/64 99 02/26/21 16:20 102 H 100 02/26/21 16:15 100 H 100 02/26/21 16:10 101 H 100 02/26/21 16:09 109 H 108/56 02/26/21 16:05 103 H 100 02/26/21 16:00 93 H 100 02/26/21 15:55 108 H 100 02/26/21 15:54 93 H 114/63 02/26/21 15:50 86 100 02/26/21 15:45 94 H 100 02/26/21 15:40 97 H 100 02/26/21 15:39 86 108/57 02/26/21 15:35 92 H 100 02/26/21 15:30 113 H 100 02/26/21 15:25 86 100 02/26/21 15:24 90 108/56 02/26/21 15:20 91 H 100 02/26/21 15:15 71 100 02/26/21 15:10 65 100 02/26/21 15:09 67 130/61 02/26/21 15:05 64 100 02/26/21 14:50 98.4 F 02/26/21 14:19 97 H 99 02/26/21 14:17 94 H 93 02/26/21 14:14 64 98 02/26/21 14:09 78 97/54 98 02/26/21 14:04 76 97 02/26/21 13:59 83 97 02/26/21 13:54 74 111/56 97 02/26/21 13:49 92 H 98 02/26/21 13:44 72 97 02/26/21 13:39 66 109/58 97 02/26/21 13:34 92 H 98 02/26/21 13:29 62 98 02/26/21 13:24 68 113/79 98 02/26/21 13:22 66 112/68 02/26/21 13:20 61 123/70 02/26/ 13:19 61 99 02/26/ 13:18 65 114/69 02/26/21 13:16 60 113/68 02/26/21 13:14 61 114/70 98 02/26/21 13:12 60 116/69 02/26/21 13:10 80 121/75 02/26/21 13:09 62 99 02/26/21 13:08 100 H 116/75 02/26/21 13:06 63 112/66 02/26/21 13:04 62 118/68 98 02/26/21 13:02 69 111/62 02/26/21 13:00 68 114/65 02/26/21 12:59 63 97 02/26/21 12:58 63 111/67 02/26/21 12:56 68 111/72 02/26/21 12:54 68 101/62 98 02/26/21 12:52 72 110/71 02/26/21 12:50 63 100/61 02/26/21 12:49 68 98 02/26/21 12:48 78 105/64 02/26/21 12:46 69 102/63 02/26/21 12:44 67 111/64 97 02/26/21 12:42 66 109/53 02/26/21 12:40 68 116/58 02/26/21 12:39 77 98 02/26/21 12:36 77 119/67 02/26/21 12:34 69 116/61 98 02/26/21 12:31 75 130/68 02/26/21 12:29 70 98 02/26/21 12:24 71 98 02/26/21 12:19 86 99 02/26/21 12:16 83 93 02/26/21 12:14 83 100 02/26/21 12:09 62 100 02/26/21 12:04 89 100 02/26/21 11:59 78 100 02/26/21 11:54 72 100 02/26/21 11:49 62 100 02/26/21 11:44 63 97 02/26/21 11:41 72 93 02/26/21 11:39 79 96 02/26/21 11:34 65 99 02/26/21 11:30 68 93 02/26/21 11:29 59 L 98 02/26/21 11:24 74 98 02/26/21 11:19 67 99 02/26/21 11:17 64 110/55 02/26/21 11:14 68 96 02/26/21 11:09 68 98 02/26/21 11:04 61 97 02/26/21 10:48 50 L 92 02/26/21 10:47 61 97 02/26/21 10:42 59 L 97 02/26/21 10:37 56 L 97 02/26/21 10:35 72 79 L 02/26/21 10:32 56 L 97 02/26/21 10:27 56 L 97 02/26/21 10:26 59 L 94 02/26/21 10:22 57 L 98 02/26/21 10:17 59 L 134/81 97 02/26/21 10:12 60 97 02/26/21 10:08 59 L 94 02/26/21 10:07 76 100 02/26/21 10:02 66 99 02/26/21 09:57 59 L 97 02/26/21 09:52 69 97 02/26/21 09:47 74 96 Intake and Output 02/26/21 02/27/21 02/27/21 22:59 06:59 14:59 Intake Total 3600 Output Total 750 400 600 Balance 2850 -400 -600 Intake: IV 3600 Lactated Ringers 1,000 ml 1000 @ 125 mls/hr IV DIRECT LARRY Rx#:[id number] Output: Urine 750 400 600 Indwelling Catheter 0 400 600 Uretheral (Jalloh) 200 Other: Total, Output Amount 0 400 600 Estimated Blood Loss 400 - Exam Breasts: Present: normal Abdomen: Present: normal appearance, soft, normal bowel sounds Vulva: both: normal Uterus: Present: normal, firm, fundal height above umbilicus, other (Jalloh out about an hour ago. Pt needs to void.) Extremities: Present: normal Incision: Present: normal, dry, intact, dressed - Labs Labs: Abnormal lab results 02/25/21 02/26/21 Range/Units 15:05 20:21 ABG pH 7.169 L (7.320-7.450) POC ABG pCO2 60.3 H (32.0-48.0) mmHg POC ABG pO2 14.5 L (83-108) mmHg ABG Oxyhemoglobin 18.2 L (94-98) ABG Sodium 132.9 L (136.0-145.0) mmol/L ABG Potassium 5.7 H (3.40-4.50) mmol/L Carboxyhemoglobin 0.4 L (0.5-1.5) Crossmatch See Detail
[2021-02-27 10:34] LABS: Basophils % (Auto) 0.1 % (0.0-1.8); Hematocrit 34.7 % (30.3-42.9); Hemoglobin 11.4 gm/dl (10.1-14.3); Lymphocytes # (Auto) 1.6 K/mm3 (1.2-5.4); Lymphocytes % (Auto) 8.7 % (13.4-35.0); Mean Corpuscular HGB Conc 33 % (30-34); Mean Corpuscular Volume 86 fl (79-97); Monocytes # (Auto) 0.9 K/mm3 (0.0-0.8); Monocytes % (Auto) 4.6 % (0.0-7.3); Platelet Count 104 K/mm3 (140-440); Red Blood Count 4.05 M/mm3 (3.65-5.03)
[2021-02-27 10:36] LABS: Red Cell Distribution Width 20.5 % (13.2-15.2)
[2021-02-27 10:40] LABS: Alanine Aminotransferase 8 units/L (7-56); Albumin 2.9 g/dL (3.9-5); BUN/Creatinine Ratio 13; Blood Urea Nitrogen 10 mg/dL (7-17); Calcium 8.5 mg/dL (8.4-10.2); Hemolysis Index 6
[2021-02-27] MEDS: IBUPROFEN 800 MG TAB PO PRN (10:52)
[2021-02-27] MEDS: FERROUS SULFATE 325 MG TAB PO SCH (10:52)
[2021-02-28] MEDS: GENTAMICIN 360 MG in SODIUM CHLORIDE 0.9% 100 ML IV SCH (00:49)
[2021-02-28] MEDS: AMPICILLIN/NS 2 GM/100 ML 2 GM/100 ML BAG IV SCH ×5 (02:07→22:30)
[2021-02-28] MEDS: IBUPROFEN 800 MG TAB PO PRN ×2 (11:49→18:20)
[2021-02-28] MEDS: FERROUS SULFATE 325 MG TAB PO SCH (11:52)
--- NOTE | 2021-02-28 13:13 | Progress Note ---
Assessment and Plan A: S/P primary LTCS with lg Fibroid and bleeding Elevated WBCs 18.[address] 104 P: Continue routine pp orders UA c&s Awaiting BC x2 Hospitalist consult r/t thrombocytopenia per Dr Amaro D/C home when cleared by hospitalist and OB Subjective - Subjective Date of service: 02/28/21 Principal diagnosis: s/p primary LTCS Patient reports: appetite normal, voiding normally, pain well controlled, ambulating normally, other (pt denies buring pain, urgency or freq upon urination.) : doing well, bottle feeding Objective - Vital Signs Latest vital signs: Vital Signs Temp Pulse Resp BP BP Pulse Ox Pulse Ox 02/28/21 12:00 97.9 F 75 18 115/67 96 02/28/21 08:00 98 02/28/21 07:31 98.2 F 64 18 125/69 99 02/28/21 05:05 98.0 F 58 L 18 111/70 98 02/27/21 23:45 98.4 F 67 20 114/69 97 02/27/21 21:00 98 02/27/21 20:37 98.2 F 80 20 119/62 99 02/27/21 16:04 98.0 F 73 18 106/69 97 Intake and Output 02/27/21 02/28/21 02/28/21 22:59 06:59 14:59 Intake Total 510 390 540 Output Total 350 Balance 160 390 540 Intake: IV 150 150 100 AMPICILLIN/NS 2 GM/100 ML 100 100 100 2 gm In 100 ml @ 100 mls /hr IV Q6H LARRY Rx#: [id number] CLEOCIN 900 MG/50 mL 900 50 50 mg In 50 ml @ 100 mls/hr IV Q8H LARRY Rx#:[id number] Oral 240 440 Intake, Free Water 360 Output: Urine 350 Void 350 Other: Total, Intake Amount 120 120 Total, Output Amount 350 # Voids Void 1 1 1 - Exam Breasts: Present: normal Abdomen: Present: normal appearance, soft, normal bowel sounds Vulva: both: normal Uterus: Present: normal, firm, fundal height below umbilicus Extremities: Present: normal Incision: Present: normal, dry, intact - Labs Labs: Abnormal lab results 02/25/21 Range/Units 15:05 Crossmatch See Detail
[2021-02-28 16:15] LABS: Basophils % (Auto) 0.2 % (0.0-1.8); Eosinophils % (Auto) 0.2 % (0.0-4.3); Hematocrit 33.4 % (30.3-42.9); Hemoglobin 11.1 gm/dl (10.1-14.3); Lymphocytes # (Auto) 2.2 K/mm3 (1.2-5.4); Lymphocytes % (Auto) 17.5 % (13.4-35.0); Mean Corpuscular HGB Conc 33 % (30-34); Mean Corpuscular Volume 86 fl (79-97); Monocytes # (Auto) 0.8 K/mm3 (0.0-0.8); Monocytes % (Auto) 6.3 % (0.0-7.3); Platelet Count 119 K/mm3 (140-440); Red Blood Count 3.89 M/mm3 (3.65-5.03)
[2021-02-28 16:20] LABS: Red Cell Distribution Width 20.1 % (13.2-15.2)
--- NOTE | 2021-03-01 07:42 | Consultation ---
History of Present Illness - Reason for Consult Consult date: 02/28/21 Management of thrombocytopenia Requesting physician: GERMAN MCFADDEN - History of Present Illness G1Po at 40.6wks by LMP c/w U/Sound. care at [facility] covered by [employer]. pt came with c/o LOF at 4am today and pt came this evening. Pt denied fever or chills. pt feeling ctx however wants to do natural labor. pt has known uterine fibroids diagnosed this and she states she has been taking iron pills. Pt admits to movement, denies vag bleed or headache. labs with B+, RPR, HIV and HepBsAg all negative. Rubella immune. records also show multiple uterine fibroids. was done 02/26/2021 with a low transverse incision. Large uterine fibroid mass extending the entire left side of the uterine cavity was identified. Hospitalist team consulted for thrombocytopenia. No active bleeding anywhere. Past History Past Medical History: other (anemia) MANAGER NIGHT History: other (uterine fibroids) Social history: no significant social history - Obstetrical History Expected Date of Delivery: 02/19/21 Actual Gestation: 40 Week(s) 6 Day(s) : 1 Number of Living Children: 0 Past History Social history: no significant social history Medications and Allergies Allergies Allergy/AdvReac Type Severity Reaction Status Date / Time No Known Allergies Allergy Verified 02/25/21 14:06 Home Medications Medication Instructions Recorded Confirmed Last Taken Type Pnv,Calcium 72/Iron/Folic Acid 1 each PO DAILY 02/25/21 02/25/21 02/24/21 14:00 History [ Plus Tablet] Ibuprofen [Motrin] 800 mg PO Q8HR PRN 21 Days #40 02/26/21 Unknown Rx tablet oxyCODONE /ACETAMINOPHEN [Percocet 1 tab PO Q4HR PRN 21 Days #30 tab 02/26/21 Unknown Rx 5/325] Active Meds: Active Medications Acetaminophen (Acetaminophen 500 Mg Tab) 1,000 mg PO Q6H PRN PRN Reason: Fever >101 Last Admin: 02/27/21 01:09 Dose: 1,000 mg Documented by: Carboprost Tromethamine (Carboprost Tromethamine 250 Mcg/1 Ml Inj) 250 mcg IM ONCE PRN PRN Reason: Uterine Bleeding Diphenhydramine HCl (Diphenhydramine 50 Mg/Ml Vial) 12.5 mg IV Q2H PRN PRN Reason: Itching Ephedrine Sulfate (Ephedrine Sulfate 50 Mg/1 Ml Inj) 10 mg IV Q2M PRN PRN Reason: Hypotension Fentanyl (Fentanyl 100 Mcg/2 Ml Inj) 100 mcg IV Q2H PRN PRN Reason: Pain,Severe (7-10) LABOR PAIN Ferrous Sulfate (Ferrous Sulfate 325 Mg Tab) 325 mg PO QDAY LARRY Last Admin: 02/28/21 11:52 Dose: 325 mg Documented by: Hydrocortisone Acetate (Hydrocortisone 25 Mg Rectal Supp) 25 mg MA BID PRN PRN Reason: Hemorrhoids Lactated Ringer's (Lactated Ringers) 1,000 mls @ 125 mls/hr IV DIRECT LARRY Last Admin: 02/27/21 20:53 Dose: 125 mls/hr Documented by: Fentanyl/Bupivacaine/Sodium Chlor (Fentanyl-Bupiv 2 Mcg/Ml-0.125%) 200 mcg in 100 mls @ 12 mls/hr EPIDURAL TITR LARRY; Protocol Last Admin: 02/26/21 13:18 Dose: 12 mls/hr Documented by: Oxytocin/Sodium Chloride (Pitocin/Ns 30 Unit/500ml) 30 units in 500 mls @ 40 mls/hr IV TITR LARRY; Protocol Ibuprofen (Ibuprofen 600 Mg Tab) 600 mg PO Q6H PRN PRN Reason: Pain, Mild (1-3) Last Admin: 02/27/21 20:52 Dose: 600 mg Documented by: Ibuprofen (Ibuprofen 800 Mg Tab) 800 mg PO Q6H PRN PRN Reason: Pain, Moderate (4-6) Last Admin: 02/28/21 18:20 Dose: 800 mg Documented by: Loperamide HCl (Loperamide 2 Mg Cap) 2 mg PO ONCE PRN PRN Reason: give with Hemabate Magnesium Hydroxide (Magnesium Hydroxide (Mom) Oral Liqd Udc) 30 ml PO QHS PRN PRN Reason: Constip Unrelieved By Senna Methylergonovine Maleate (Methylergonovine Maleate 0.2 Mg/Ml Vial) 0.2 mg IM ONCE PRN PRN Reason: Uterine Bleeding Mineral Oil (Mineral Oil 30 Ml Oral Liqd) 30 ml PO QHS PRN PRN Reason: Constipation Morphine Sulfate (Morphine 2 Mg/1 Ml Inj) 2 mg IV Q4H PRN PRN Reason: Pain, Moderate (4-6) Multi-Ingredient Ointment (Lanolin/Zinc/Dimethicone (Lansinoh) 7 Gm) 1 applic TP PRN PRN PRN Reason: dryness/cracking Nalbuphine HCl (Nalbuphine 10 Mg/1 Ml Inj) 10 mg IV Q2H PRN PRN Reason: Pain, Moderate (4-6) Last Admin: 02/26/21 04:13 Dose: 10 mg Documented by: Nalbuphine HCl (Nalbuphine 10 Mg/1 Ml Inj) 2.5 mg IV Q2H PRN PRN Reason: Itching Naloxone HCl (Naloxone 2 Mg/2 Ml Inj) 0.2 mg IV Q5M PRN PRN Reason: Respiratory sedation Naloxone HCl (Naloxone 0.4 Mg/1 Ml Inj) 0.1 mg IV Q2MIN PRN PRN Reason: Res Rate </= 8 or 02 SAT < 92% Ondansetron HCl (Ondansetron 4 Mg/2 Ml Inj) 4 mg IV Q8H PRN PRN Reason: Nausea And Vomiting Oxycodone/Acetaminophen (Oxycodone /Acetaminophen 5-325mg Tab) 2 tab PO Q6H PRN PRN Reason: Pain, Moderate (4-6) Oxytocin (Oxytocin 10 Unit/1 Ml Inj) 10 unit IM ONCE PRN PRN Reason: Uterine Bleeding Simethicone (Simethicone 80 Mg Chew Tab) 80 mg PO Q6H PRN PRN Reason: Gas pain Witch Meg/Glycerin (Witch Meg/ Glycerin Pad) 1 each TP PRN PRN PRN Reason: Hemorrhoids/cleansing/soothing Review of Systems All systems: negative Exam - Constitutional Vitals: Temp Pulse Resp BP Pulse Ox 98.3 F 61 20 108/59 99 03/01/21 00:50 03/01/21 00:50 03/01/21 00:50 03/01/21 00:50 03/01/21 00:50 General appearance: Present: no acute distress, well-nourished - EENT Eyes: Present: PERRL ENT: hearing intact, clear oral mucosa - Neck Neck: Present: supple, normal ROM - Respiratory Respiratory effort: normal Respiratory: bilateral: CTA - Cardiovascular Heart rate: 78 Rhythm: regular Heart Sounds: Present: S1 & S2. Absent: rub, click - Extremities Extremities: pulses symmetrical, No edema Peripheral Pulses: within normal limits - Abdominal General gastrointestinal: Present: soft, non-tender, non-distended, normal bowel sounds Female genitourinary: Present: normal - Integumentary Integumentary: Present: clear, warm, dry - Musculoskeletal Musculoskeletal: gait normal, strength equal bilaterally - Psychiatric Psychiatric: appropriate mood/affect, intact judgment & insight - Neurologic Neurologic: CNII-XII intact, moves all extremities Results - Labs CBC & Chem 7: 02/28/21 15:35 02/27/21 09:54 Labs: Abnormal lab results 02/28/21 Range/Units 15:35 WBC 12.5 H (4.5-11.0) K/mm3 RDW 20.1 H (13.2-15.2) % Plt Count 119 L (140-440) K/mm3 Seg Neutrophils % 75.8 H (40.0-70.0) % Seg Neutrophils # 9.5 H (1.8-7.7) K/mm3 Short CBC 02/28/21 Range/Units 15:35 WBC 12.5 H (4.5-11.0) K/mm3 Hgb 11.1 (10.1-14.3) gm/dl Hct 33.4 (30.3-42.9) % Plt Count 119 L (140-440) K/mm3 Assessment and Plan - Patient Problems (1) Thrombocytopenia affecting Current Visit: Yes Status: Acute Plan to address problem: Nonspecific. No evidence of ITP/TTP We will monitor platelets on a regular basis. Steroids if necessary. Stress-induced. We will follow 12 discharge. (2) Malnutrition Current Visit: Yes Status: Chronic Qualifiers: Malnutrition type: unspecified type Qualified Code(s): E46 - Unspecified protein-calorie malnutrition Plan to address problem: Dietary supplements added Thank you for the consult
--- NOTE | 2021-03-01 07:56 | Event Note ---
Date: 03/01/21 Platelet count improving Patient stable for discharge Can follow-up with primary care physician regarding stress-induced thrombocytopenia which is improving
--- NOTE | 2021-03-01 09:11 | Discharge Summary ---
Providers - Providers Date of Admission: 02/25/21 13:25 Date of discharge: 03/01/21 Attending physician: GERMAN MCFADDEN 02/28/21 13:28 Consult to Physician [CONS] Routine Comment: Consulting Provider: SLIME QUINTERO Physician Instructions: please evaluate Reason For Exam: thrombocytopenia Primary care physician: GERMAN MCFADDEN Hospitalization Reason for admission: active labor, rupture of membranes Delivery: Procedure: primary low transverse Episiotomy: none Laceration: none Incision: normal, dry, intact Other procedures: none complications: other (Pt was seen by Dr Cespedes r/t stress induced thrombocytopenia.) Discharge diagnosis: IUP at term delivered baby: female Hospital course: Pt was admitted to [facility] with c/o SROM and uc. She had a primary LTCS and a lg 22cm fibroid was found. Pt was seen by Dr Cespedes pp r/t stress induced thrombocytopenia. She was d/c'd home for pcp f/u. See h&P, delivery summary, and pp notes. Condition at discharge: Stable Disposition: 01 HOME / SELF CARE / HOMELESS Plan - Discharge Medications Prescriptions: Ibuprofen [Motrin] 800 mg PO Q8HR PRN 21 Days #40 tablet PRN Reason: Pain, Mild (1-3) oxyCODONE /ACETAMINOPHEN [Percocet 5/325] 1 tab PO Q4HR PRN 21 Days #30 tab PRN Reason: Pain , Severe (7-10) - Provider Discharge Summary Activity: routine, no sex for 6 weeks, no heavy lifting 4 weeks, no strenuous exercise Diet: routine Instructions: routine Additional instructions: [] Smoking cessation referral if applicable(refer to patient education folder for contact #) [] Refer to [facility]'s [facility] Booklet Call your doctor immediately for: * Fever > 100.5 * Heavy vaginal bleeding ( >1 pad per hour) * Severe persistent headache * Shortness of breath * Reddened, hot, painful area to leg or breast * Drainage or odor from incision. 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
[2021-03-01 10:25] LABS: Basophils % (Auto) 0.4 % (0.0-1.8); Eosinophils % (Auto) 0.3 % (0.0-4.3); Hematocrit 32.3 % (30.3-42.9); Hemoglobin 10.7 gm/dl (10.1-14.3); Lymphocytes # (Auto) 1.8 K/mm3 (1.2-5.4); Lymphocytes % (Auto) 18.9 % (13.4-35.0); Mean Corpuscular HGB Conc 33 % (30-34); Mean Corpuscular Volume 86 fl (79-97); Monocytes # (Auto) 0.5 K/mm3 (0.0-0.8); Monocytes % (Auto) 5.3 % (0.0-7.3); Platelet Count 148 K/mm3 (140-440); Red Blood Count 3.76 M/mm3 (3.65-5.03); Red Cell Distribution Width 19.9 % (13.2-15.2)
[2021-03-01 10:49] LABS: Blood Urea Nitrogen 6 mg/dL (7-17); Calcium 8.8 mg/dL (8.4-10.2); Hemolysis Index 4
[2021-03-01 11:07] LABS: BUN/Creatinine Ratio 12
[2021-03-01 12:46] VITALS: BP 106/80
== END 2021-03-01 12:20 | disposition home or self-care (01) | DRG 787 ==
LOC: TRG 13:24 → LD 13:24 → APU 13:25 → TRG 15:41 → OB 02-27 08:59
PROVIDERS: ADMIT Obstetrics & Gynecology; ATTEND Obstetrics & Gynecology
PROC: 10H07YZ Insertion of Other Device into Products of Conception, Via Natural or Artificial Opening (ICD-10-PCS; principal; 2021-02-26)
PROC: 10D00Z1 Extraction of Products of Conception, Low, Open Approach (ICD-10-PCS; 2021-02-26)
DX: O48.0 Post-term pregnancy (principal); O72.1 Other immediate postpartum hemorrhage; O86.12 Endometritis following delivery; O99.12 Other diseases of the blood and blood-forming organs and certain disorders involving the immune mechanism complicating childbirth; Z3A.40 40 weeks gestation of pregnancy; Z37.0 Single live birth; O77.0 Labor and delivery complicated by meconium in amniotic fluid; O34.13 Maternal care for benign tumor of corpus uteri, third trimester; D25.9 Leiomyoma of uterus, unspecified; O76 Abnormality in fetal heart rate and rhythm complicating labor and delivery; O66.0 Obstructed labor due to shoulder dystocia; O69.81X0 Labor and delivery complicated by cord around neck, without compression, not applicable or unspecified; O42.02 Full-term premature rupture of membranes, onset of labor within 24 hours of rupture; D69.6 Thrombocytopenia, unspecified; O25.2 Malnutrition in childbirth
CPT/HCPCS: 36415; 76816; 80048; 80053; 81015; 82805; 83615; 84112; 84550; 85025; 85027; 86850; 86900; 86901; 86920; 87040; 87086; 88112; 88307; G0378; J0290; J0690; J1100; J1580; J1885; J2300; J2405; J2590; J2765; J3010; J3105; J7120; U0003